=== PATIENT | female | born 1955 | race Caucasian/White ===

== ENCOUNTER → 2022-08-13 | Outpatient (CLI) | payer MEDICARE ==
[2022-08-13 11:25] VITALS: BP 147/80; PULSE 59; RESP 17; TEMP 97.8
--- NOTE | 2022-08-13 11:43 | P.GSHP ---
History of Present Illness H&P Date: 08/13/22 Chief Complaint: Invasive ductal carcinoma right breast stage IA Karla is a 67-year-old white female seen in consultation for Dr. Calles regarding a biopsy-proven right breast invasive ductal carcinoma. She underwent a bilateral screening mammogram on which revealed an abnormality in the right breast. This was followed by a right breast ultrasound which led to a biopsy performed on . The lesion was 0.4 x 0.5 cm at the 8 o'clock position right breast. Pathology revealed a grade 1 invasive ductal carcinoma ER/LA positive HER-2/carissa negative. This was a routine screening mammogram. Her last mammogram prior to this one was 2013. She did not feel any lumps, masses, or nodules in her breast. She has not had prior surgery in her breast. She has no history of any recent trauma or infection in her breast. Caffeine: 1 pot of coffee/day nicotine: none chocolate: occasional BCP: in her 20's used for 8 years Family History: maternal grandmother: colon cancer brother: lung cancer smoker Hormonal History: menarche: 14 G1A menopause: 52 hormones: none Surgical History: colonoscopy in the past Medical History: Anxiety/depression Social History: nicotine: none alcohol: beer daily to help sleep drugs: none - Constitutional Constitutional: Denies chills, Denies fever - EENT Eyes: denies blurred vision, denies pain Ears: deny: decreased hearing, tinnitus Ears, nose, mouth and throat: Denies headache, Denies sore throat - Breasts Breasts: bilateral: as per HPI - Cardiovascular Cardiovascular: Denies chest pain, Denies shortness of breath - Respiratory Respiratory: Denies cough, Denies 7 - Gastrointestinal Gastrointestinal: Denies abdominal pain, Denies diarrhea, Denies nausea, Denies vomiting - Genitourinary (Female) Genitourinary: Denies dysuria, Denies hematuria - Menstruation Menstruation: Reports postmenopausal - Musculoskeletal Musculoskeletal: Denies myalgias - Integumentary Integumentary: Denies pruritus, Denies rash - Neurological Neurological: Denies numbness, Denies weakness - Psychiatric Psychiatric: Reports anxiety, Reports depression - Endocrine Endocrine: Denies fatigue, Denies weight change - Hematologic/Lymphatic Comment: none - Allergic/Immunologic Allergic/Immunologic: Reports seasonal allergies Past Medical History Past Medical History: No Reported History History of Any Multi-Drug Resistant Organisms: None Reported Past Surgical History: No Surgical Hx Reported Past Anesthesia/Blood Transfusion Reactions: No Reported Reaction Past Psychological History: Anxiety, Depression Smoking Status: Former smoker Past Alcohol Use History: Occasional Past Drug Use History: None Reported Medications and Allergies Home Medications Medication Instructions Recorded Confirmed Type Unable To Assess [Unable to Assess] 08/13/22 08/13/22 History Allergies Allergy/AdvReac Type Severity Reaction Status Date / Time No Known Allergies Allergy Unverified 08/13/22 11:20 Surgical - Exam Vital Signs Temp Pulse Resp BP Pulse Ox 97.8 F 59 L 17 147/80 99 08/13/22 11:22 08/13/22 11:22 08/13/22 11:22 08/13/22 11:22 08/13/22 11:22 - General no distress - Eyes normal ocular movement - Neck trachea midline - Respiratory normal respiratory effort, clear to auscultation - Cardiovascular Rhythm: regular Heart Sounds: normal: S1, S2 - Abdomen Abdomen: soft - Integumentary normal turgor - Neurologic no disoriented, no combative - Musculoskeletal normal gait - Psychiatric oriented to time, oriented to person, oriented to place, speech is normal, memory intact Breast Exam: BRA: 38B inspection: bilateral grade 3 ptosis, right breast larger than left breast palpation: right breast: Multi-positional exam no dominant masses or nodules of concern Right axilla: No adenopathy of concern Left breast: Multiple positional exam no dominant masses or nodules of concern Left axilla: No adenopathy of concern Results Ultrasound results reviewed, mammogram pending pathology results reviewed Assessment and Plan Assessment: Impression: Right breast stage IA invasive ductal carcinoma Plan: Presentation of case at tumor board CC: Dr. Calles
== END ==
LOC: WWCWWP 10:31
PROVIDERS: ATTEND Surgery
DX: C50.911 Malignant neoplasm of unspecified site of right female breast (principal); F32.A Depression, unspecified; F41.9 Anxiety disorder, unspecified; Z87.891 Personal history of nicotine dependence; Z80.0 Family history of malignant neoplasm of digestive organs; Z17.0 Estrogen receptor positive status [ER+]; Z80.1 Family history of malignant neoplasm of trachea, bronchus and lung

== ENCOUNTER → 2022-09-24 | Outpatient (CLI) | payer MEDICARE ==
[2022-09-24 14:56] VITALS: BP 135/81; PULSE 68; RESP 13; TEMP 98.2
--- NOTE | 2022-09-24 15:06 | P.PN ---
Subjective Progress Note Date: 09/24/22 History of Present Illness H&P Date: 08/13/22 Chief Complaint: Invasive ductal carcinoma right breast stage IA Karla is a 67-year-old white female seen in consultation for Dr. Calles regarding a biopsy-proven right breast invasive ductal carcinoma. She underwent a bilateral screening mammogram on which revealed an abnormality in the right breast. This was followed by a right breast ultrasound which led to a biopsy performed on . The lesion was 0.4 x 0.5 cm at the 8 o'clock position right breast. Pathology revealed a grade 1 invasive ductal carcinoma ER/[place] positive HER-2/carissa negative. This was a routine screening mammogram. Her last mammogram prior to this one was 2013. She did not feel any lumps, masses, or nodules in her breast. She has not had prior surgery in her breast. She has no history of any recent trauma or infection in her breast. tumor board: 08-24-22 note radiation oncology 08-26-22 reviewed Caffeine: 1 pot of coffee/day nicotine: none chocolate: occasional BCP: in her 20's used for 8 years Family History: maternal grandmother: colon cancer brother: lung cancer smoker Hormonal History: menarche: 14 G1A menopause: 52 hormones: none Surgical History: colonoscopy in the past Medical History: Anxiety/depression Social History: nicotine: none alcohol: beer daily to help sleep drugs: none - Constitutional Constitutional: Denies chills, Denies fever - EENT Eyes: denies blurred vision, denies pain Ears: deny: decreased hearing, tinnitus Ears, nose, mouth and throat: Denies headache, Denies sore throat - Breasts Breasts: bilateral: as per HPI - Cardiovascular Cardiovascular: Denies chest pain, Denies shortness of breath - Respiratory Respiratory: Denies cough - Gastrointestinal Gastrointestinal: Denies abdominal pain, Denies diarrhea, Denies nausea, Denies vomiting - Genitourinary (Female) Genitourinary: Denies dysuria, Denies hematuria - Menstruation Menstruation: Reports postmenopausal - Musculoskeletal Musculoskeletal: Denies myalgias - Integumentary Integumentary: Denies pruritus, Denies rash - Neurological Neurological: Denies numbness, Denies weakness - Psychiatric Psychiatric: Reports anxiety, Reports depression - Endocrine Endocrine: Denies fatigue, Denies weight change - Hematologic/Lymphatic Comment: none - Allergic/Immunologic Allergic/Immunologic: Reports seasonal allergies Past Medical History Past Medical History: No Reported History History of Any Multi-Drug Resistant Organisms: None Reported Past Surgical History: No Surgical Hx Reported Past Anesthesia/Blood Transfusion Reactions: No Reported Reaction Past Psychological History: Anxiety, Depression Smoking Status: Former smoker Past Alcohol Use History: Occasional Past Drug Use History: None Reported Medications and Allergies Home Medications Medication Instructions Recorded Confirmed Type Unable To Assess [Unable to Assess] 08/13/22 08/13/22 History Allergies Allergy/AdvReac Type Severity Reaction Status Date / Time No Known Allergies Allergy Unverified 08/13/22 11:20 Objective - Vital Signs Vital signs: Vital Signs Temp 98.2 F 09/24/22 14:53 Pulse 68 09/24/22 14:53 Resp 13 09/24/22 14:53 BP 135/81 09/24/22 14:53 Pulse Ox 98 09/24/22 14:53 FiO2 Intake & Output 09/23/22 09/24/22 09/24/22 18:59 06:59 18:59 Weight 64.41 kg - Constitutional General appearance: Present: cooperative - EENT Eyes: Present: EOMI ENT: Present: hearing grossly normal - Neck Neck: Present: normal ROM - Respiratory Respiratory: bilateral: CTA - Cardiovascular Rhythm: regular Heart sounds: normal: S1, S2 - Gastrointestinal General gastrointestinal: Present: soft - Integumentary Integumentary: Present: normal turgor - Musculoskeletal Musculoskeletal: Present: gait normal - Psychiatric Psychiatric: Present: A&O x's 3, appropriate affect, intact judgment & insight - Additional findings Additional findings: Breast Exam: BRA: 38B inspection: bilateral grade 3 ptosis, right breast larger than left breast palpation: right breast: Multi-positional exam no dominant masses or nodules of concern Right axilla: No adenopathy of concern Left breast: Multiple positional exam no dominant masses or nodules of concern Left axilla: No adenopathy of concern Assessment and Plan Assessment: Impression: Right breast stage IA invasive ductal carcinoma I have seen the patient with her friend. We have discussed treatment options which include: Surgery lumpectomy plus radiation versus mastectomy Archer node biopsy/axillary node dissection Medical oncology treatments Radiation oncology The patient and her friend understand the patient would like to have a lumpectomy. Risks of surgery include but are not limited to bleeding, infection, reaction to the anesthetic. They also understand the risk of positive margin would require repeat the resection. They also understand that surgery in the axilla could result in lymphedema, decreased sensation to the inner arm, possible injury to the thoracodorsal or long thoracic nerves. They wish to proceed with surgery. Plan: Presentation of case at tumor board/ 08-24-22 Right breast needle localization lumpectomy, possible onco-plastic tissue transfer, right sentinel node injection, right sentinel node biopsy, possible right axillary node dissection Plan: Presentation of case at tumor board CC: Dr. Calles
== END ==
LOC: WWCWWP 14:44
PROVIDERS: ATTEND Surgery
DX: D05.11 Intraductal carcinoma in situ of right breast (principal); F41.9 Anxiety disorder, unspecified; F32.A Depression, unspecified; Z17.0 Estrogen receptor positive status [ER+]; Z87.891 Personal history of nicotine dependence

== ENCOUNTER 2022-10-05 10:41 | Day surgery (SDC) | payer MEDICARE ==
[~2022-10-05 10:41] MED LIST: ALPRAZolam 0.5 MG TAB PO PRN; DEXAMETHASONE SOD PHOSPHATE 4 MG/ML 1 ML VIAL IV ONE; HEPARIN SODIUM,PORCINE/PF 5,000 UNIT/0.5 ML SYRINGE SQ PRN; HYDROmorphone 0.5 MG/0.5 ML SYRINGE IVP PRN; LACTATED RINGERS 1,000 ML IV SCH; LIDOCAINE 1% (10MG/ML) FOR IV START INTRADERMA PRN; METOCLOPRAMIDE 5 MG/ML 2 ML VIAL IVP PRN; ONDANSETRON 4 MG/2 ML VIAL IVP ONE; Pre Op ABX Message 1 EACH MISC MISCELLANE ONE
[2022-10-05] MEDS ORDERED: ALPRAZolam 0.5 MG TAB PO ONE (11:30)
[2022-10-05 12:02] VITALS: TEMP 98.1
[2022-10-05] MEDS ORDERED: LIDOCAINE 1% INJ 10MG/ML (20 ML MDV) SQ ONE (12:07)
--- NOTE | 2022-10-05 12:59 | NM ---
EXAMINATION TYPE: NM sentinel node injection DATE OF EXAM: 10/05/2022 COMPARISON: NONE CLINICAL INDICATION: Female, 67 years old with history of Breast Cancer; TECHNIQUE AND FINDINGS: The procedure of sentinel lymph node injection was explained to the patient. The benefits, alternatives, and risks were discussed. An informed consent was then obtained. Overlying skin is cleaned with sterile alcohol. Following this, 518 uCi Tc99m Tilmanocept was inject ed in the upper outer aspect of the right nipple intradermally. The patient tolerated the procedure well without any immediate complication. The patient was kept in the radiology department for short stay after the procedure and then taken to surgery for surgical p rocedure what is presumed intraoperative gamma probe will be used for sentinel lymph node detection. IMPRESSION: Right breast radiotracer injection for sentinel node localization as above.
--- NOTE | 2022-10-05 13:51 | P.NAPBC ---
NAPBC Queries - NAPBC Queries Was patient's case review presented at [facility] tumor board? If no, comment.: Yes Was patient's pathology reviewed at [facility]? If no, comment.: Yes Was breast conservation surgery offered? If no, comment.: Yes Was sentinel node biopsy offered? If no, comment.: Yes Was diagnosis confirmed by percutaneous core biopsy? If no, comment.: Yes Is patient mastectomy patient?: No Was a preop referral to reconstructive surgeon offered?: No Clinical Stage: stage IA right breast invasive ductal cancer
[2022-10-05] MEDS ORDERED: PROPOFOL 10 MG/ML 20 ML VIAL IV ONE (14:30)
[2022-10-05] MEDS ORDERED: MIDAZOLAM 2 MG/2 ML VIAL ONE (14:30)
[2022-10-05] MEDS ORDERED: LIDOCAINE 2% INJ 20 MG/ML (2 ML VIAL) ONE (14:30)
[2022-10-05] MEDS ORDERED: fentaNYL (PF) 50 MCG/ML 2 ML AMP ONE (14:30)
[2022-10-05] MEDS ORDERED: LACTATED RINGERS 1,000 ML IV ONE (15:25)
--- NOTE | 2022-10-05 15:58 | P.OP ---
Date of Procedure: 10/05/22 Preoperative Diagnosis: Right breast invasive ductal carcinoma Postoperative Diagnosis: Same Procedure(s) Performed: Right breast needle localization lumpectomy, sentinel node biopsy Anesthesia: SHAWNAA Surgeon: Marizol Petersen Estimated Blood Loss (ml): 10 IV fluids (ml): 700 Pathology: other (Breast tissue) Condition: stable Disposition: same day Indications for Procedure: Biopsy-proven right breast invasive ductal carcinoma Operative Findings: Fibrofatty breast tissue Description of Procedure: The patient was initially seen by the radiology department. Localization of the tumor in the right breast was performed. Periareolar injection of radioactive material was placed in the right breast. The patient was brought to the operative suite. Following induction of anesthesia the neoprobe was used to interrogate the axilla. Increased radioactivity was identified. The right breast and axilla were then prepped and draped in a sterile fashion. Using the neoprobe for localization an incision was made in the right axilla. Dissection was performed down to the area of greatest radioactivity. This was grasped using an Allis clamp. Circumferential dissection was performed and the area was removed. The 10 second count on the lymph node was 9475. The 10 second background count was 50. No other adenopathy of concern was identified. The wound was well irrigated. The deep tissues were closed using 3-0 Vicryl suture. A 3-0 Vicryl suture was used to close subcutaneous tissue. 4-0 Monocryl was used to close the skin. The area of the breast was approached. A vertical incision was made and skin was removed anteriorly. Dissection was performed posterior circumferentially around the needle to the pectoralis muscle. Wide resection was performed. Radiograph of the specimen revealed that the area of concern had been removed. After assured that hemostasis was attained the wound was well irrigated. Surgicel in powder form was placed. Titanium clips were placed. The deep ti ssues were brought together using 3-0 Vicryl suture. The subcutaneous tissue was closed using a 3-0 Vicryl suture. The skin was closed using 4-0 Monocryl.
[2022-10-05 16:46] VITALS: RESP 17
[2022-10-05] MEDS ORDERED: HYDROcodone/APAP 5-325MG 1 EACH TAB ONE (16:50)
[2022-10-05] MEDS ORDERED: HYDROcodone/APAP 5-325MG 1 EACH TAB PO ONE (16:53)
[2022-10-05 17:07] VITALS: BP 145/88; PULSE 77
--- NOTE | 2022-10-18 12:02 | MM ---
Risk Values: Sharon 5 year model risk: 1.8%. NCI Lifetime model risk: 6.9%. Pathology Description: Approach: Lateral to Medial Needle Type: 7 cm Kopan Informed consent was obtained and all the patient's questions were answered. The clip in question was localized mammographically. The standard sterile technique was utilized, as well as appropriate local anesthesia with 1% Lidocaine and bicarbonate. Localization needle followed by placement of a guidewire was performed under mammographic guidance. Verification images demonstrate appropriate deployment of the guidewire. The patient tolerated the procedure well and left the department in stable condition. Specimen radiograph demonstrates the clip in question to reside within the specimen. IMPRESSION: Successful needle localization and open biopsy right breast with pathology results pending. Pathology Results: Result: Malignant, Invasive ductal carcinoma. A. LYMPH NODE, RIGHT SENTINEL, DISSECTION: One sentinel lymph node, negative for metastatic carcinoma. CK7 and ADRIENNE stains with appropriate controls on blocks A1 and A2 each negative for metastatic carcinoma. B. RIGHT AXILLARY TISSUE, DISSECTION: Benign fibroadipose tissue with no definitive lymphoid tissue identified. C. RIGHT BREAST, LUMPECTOMY: Invasive well differentiated ductal carcinoma, Grade 1 (see surgical pathology cancer case summary and comment). All margins negative for carcinoma. Overall Assessment: Malignant Management: Surgical Consultation of the right breast. Electronically signed and approved by: Jose Alberto Sawant M.D. Radiologis
== END 2022-10-05 17:35 | disposition home or self-care (01) ==
LOC: OR 10:41
PROVIDERS: ATTEND Surgery
DX: C50.511 Malignant neoplasm of lower-outer quadrant of right female breast (principal); Z86.010 Personal history of colon polyps; I10 Essential (primary) hypertension; E78.5 Hyperlipidemia, unspecified; Z79.899 Other long term (current) drug therapy; Z79.811 Long term (current) use of aromatase inhibitors; Z79.02 Long term (current) use of antithrombotics/antiplatelets
CPT/HCPCS: 38500; 88342; 88307; 88341; 76098; 19281; 38792; C1819; A9520; J2250; J1100; J2405; J2001 ×2; J3010; J2704; J1644

== ENCOUNTER → 2022-10-14 | Outpatient (CLI) | payer MEDICARE ==
--- NOTE | 2022-10-14 12:51 | P.PN ---
Progress Note - Text Progress Note Date: 10/14/22 Karla is a 67 year old female status post right [place] [id number]. Pathology revealed a grade 1 invasive well- differentiated ductal carcinoma all margins negative for cancer. The tumor was 7 mm in greatest dimension. She had 1 sentinel lymph node removed which was negative for cancer. She tolerated the surgery without difficulty. physical exam: lungs: clear heart: RRR Incision clean and dry axilla and breast Impression: Patient doing well postoperatively remove sutures Plan: Appointment medical oncology Radiation oncology Follow-up E4 months CC: DR. Calles
[2022-10-14 13:06] VITALS: BP 149/86; PULSE 72; RESP 17; TEMP 98.4
== END ==
LOC: WWCWWP 12:23
PROVIDERS: ATTEND Surgery
DX: Z85.3 Personal history of malignant neoplasm of breast (principal)

== ENCOUNTER → 2023-11-09 | Outpatient (CLI) | payer MEDICARE ==
[2023-11-09 13:08] VITALS: BP 192/96; PULSE 84; RESP 17; TEMP 98.4
--- NOTE | 2023-11-09 13:27 | P.PN ---
Subjective Progress Note Date: 11/09/23 Principal diagnosis: right breast invasive ductal cancer 202211-09-23 History of Present Illness Chief Complaint: Invasive ductal carcinoma right breast stage IA Karla is a 68-year-old white female seen in consultation for Dr. Calles regarding a biopsy-proven right breast invasive ductal carcinoma in 2022. She underwent a bilateral screening mammogram on which revealed an abnormality in the right breast. This was followed by a right breast ultrasound which led to a biopsy performed on . The lesion was 0.4 x 0.5 cm at the 8 o'clock position right breast. Pathology revealed a grade 1 invasive ductal carcinoma ER/[place] positive HER-2/carissa negative. This was a routine screening mammogram. Her last mammogram prior to this one was 2013. She did not feel any lumps, masses, or nodules in her breast. She had not had prior surgery in her breast. She has no history of any recent trauma or infection in her breast. She does not complain of any lumps in her breast at this time. She is not complaining of any nipple discharge or skin changes. tumor board: 08-24-22 right breast lumpectomy and SNB on 10-05-22 note radiation oncology 01-13-23 reviewed; completed treatment on 12-14-22 note medical oncology 10-31-23 reviewed; on annestrazole bilateral mammogram on 10-20-23 irregular area right breast ultrasound done probably cyst but biopsy recommended, done a [facility] She comes today for evaluation of the radiographic abnormality in the right breast. She states her phone has not been working and she has missed multiple appointments here. note Dr. Calles reviewed 10-27-23 Caffeine: 1 pot of coffee/day nicotine: none chocolate: occasional BCP: in her 20's used for 8 years Family History: maternal grandmother: colon cancer brother: lung cancer smoker Hormonal History: menarche: 14 G1A menopause: 52 hormones: none Surgical History: colonoscopy in the past Medical History: Anxiety/depression Social History: nicotine: none alcohol: beer daily to help sleep drugs: none - Constitutional Constitutional: Denies chills, Denies fever - EENT Eyes: denies blurred vision, denies pain Ears: deny: decreased hearing, tinnitus Ears, nose, mouth and throat: Denies headache, Denies sore throat - Breasts Breasts: bilateral: as per HPI - Cardiovascular Cardiovascular: Denies chest pain, Denies shortness of breath - Respiratory Respiratory: Denies cough - Gastrointestinal Gastrointestinal: Denies abdominal pain, Denies diarrhea, Denies nausea, Denies vomiting - Genitourinary (Female) Genitourinary: Denies dysuria, Denies hematuria - Menstruation Menstruation: Reports postmenopausal - Musculoskeletal Musculoskeletal: Denies myalgias - Integumentary Integumentary: Denies pruritus, Denies rash - Neurological Neurological: Denies numbness, Denies weakness - Psychiatric Psychiatric: Reports anxiety, Reports depression - Endocrine Endocrine: Denies fatigue, Denies weight change - Hematologic/Lymphatic Comment: none - Allergic/Immunologic Allergic/Immunologic: Reports seasonal allergies Past Medical History Past Medical History: No Reported History History of Any Multi-Drug Resistant Organisms: None Reported Past Surgical History: No Surgical Hx Reported Past Anesthesia/Blood Transfusion Reactions: No Reported Reaction Past Psychological History: Anxiety, Depression Smoking Status: Former smoker Past Alcohol Use History: Occasional Past Drug Use History: None Reported Medications and Allergies Home Medications Medication Instructions Recorded Confirmed Type Unable To Assess [Unable to Assess] 08/13/22 08/13/22 History Allergies Allergy/AdvReac Type Severity Reaction Status Date / Time No Known Allergies Allergy Unverified 08/13/22 11:20 Objective - Vital Signs Vital signs: Vital Signs Temp 98.4 F 11/09/23 13:04 Pulse 84 11/09/23 13:04 Resp 17 11/09/23 13:04 BP 192/96 11/09/23 13:04 Pulse Ox 96 11/09/23 13:04 FiO2 Intake & Output 11/08/23 11/09/23 11/09/23 18:59 06:59 18:59 Weight 70.307 kg - Constitutional General appearance: Present: cooperative - EENT Eyes: Present: EOMI ENT: Present: hearing grossly normal - Neck Neck: Present: normal ROM - Respiratory Respiratory: bilateral: CTA - Cardiovascular Rhythm: regular Heart sounds: normal: S1, S2 - Gastrointestinal General gastrointestinal: Present: soft - Integumentary Integumentary: Present: normal turgor - Musculoskeletal Musculoskeletal: Present: gait normal - Psychiatric Psychiatric: Present: A&O x's 3, appropriate affect, intact judgment & insight - Additional findings Additional findings: Breast Exam: BRA: 38B inspection: bilateral grade 3 ptosis, right breast larger than left breast palpation: right breast: Multi-positional exam no dominant masses or nodules of concern; fullness in the lower lateral breast, scar lower lateral right breast Right axilla: No adenopathy of concern Left breast: Multiple positional exam no dominant masses or nodules of concern Left axilla: No adenopathy of concern Assessment and Plan Assessment: Impression: Recent bilateral mammogram revealing an area of concern in the right breast Patient's status post right breast lumpectomy and sentinel node biopsy for invasive ductal carcinoma in 2022 Plan: Right breast ultrasound-guided aspiration/biopsy Follow-up after aspiration/biopsy right breast CC: Dr. Calles
== END ==
LOC: WWCWWP 11:27
PROVIDERS: ATTEND Surgery
DX: Z12.31 Encounter for screening mammogram for malignant neoplasm of breast (principal); R92.8 Other abnormal and inconclusive findings on diagnostic imaging of breast; C50.911 Malignant neoplasm of unspecified site of right female breast; Z48.817 Encounter for surgical aftercare following surgery on the skin and subcutaneous tissue; Z17.0 Estrogen receptor positive status [ER+]; Z98.890 Other specified postprocedural states; Z87.891 Personal history of nicotine dependence

== ENCOUNTER → 2023-11-10 | Day surgery (SDC) | payer MEDICARE ==
--- NOTE | 2023-12-02 08:58 | MM ---
Reason for Exam: Post Procedure Mammogram. Last mammogram was performed 10 year(s) and 6 month(s) ago. Patient History: Menarche at age 14. First Full-Term at age 29. Postmenopausal. Breast cancer, right, age 67. Hormonal Contraceptives for 15 years from age 24 until age 37. 10/05/2022, Lumpectomy on the Right side. 10/05/2022, Malignant MG pre op needle loc RT on the right side. Maternal cousin had breast cancer, age 30. Prior Study Comparison: 06/21/2003 Screening Mammogram, [place]. 02/16/2006 Bilateral Screening Mammogram, [facility]. 05/09/2013 Bilateral Screening Mammogram, [facility]. Tissue Density: Right: The breasts are heterogeneously dense, which may obscure small masses. Pathology Description: Location: 7 o'clock. The 2.7 cm cystic area in the right breast, 7:00 position underlying the patient's scar is identified and targeted for aspiration. Postsurgical seroma is suggested. No significant internal complexity is seen. The ultrasound guided cyst aspiration procedure was explained to the patient. The risks, benefits, alternatives were discussed. An informed consent was then obtained. A time out was performed. The patient was placed in supine positioning for imaging and for the procedure. The overlying skin was prepped with ChloraPrep and sterilely draped in usual sterile fashion. 5 ml 1% lidocaine was used as anesthetic into the skin and deeper breast tissue up to area of concern in the right 7 o'clock breast, 7 cm from nipple. Under ultrasound guidance, 18-gauge spinal needle was advanced into the fluid collection and aspiration yielded 5 mL of clear jett seroma fluid. The fluid was labeled and sent for laboratory analysis. No clip was deposited. Good hemostasis was obtained with direct pressure. Postprocedure mammogram: The patient was transferred to mammography for physician ordered post procedure mammogram for clip placement verification. The clip is in the expected region of the surgical site. The patient tolerated the procedure well without any immediate complication. The patient was discharged to home in stable condition. IMPRESSION: Successful ultrasound guided right breast seroma aspiration. Cytology pending. Recommend 6 month follow-up diagnostic mammogram as continued surveillance following recent treatment for breast cancer. Pathology Results: Result: Benign. Pathology and radiology were reviewed. Findings are concordant. RIGHT BREAST, ASPIRATION: Hypocellular specimen with mostly peripheral blood, non-diagnostic for neoplasm. Foamy macrophages on Crawley stained cytospin slide, possibly representing fat necrosis. Overall Assessment: Benign Assessment: MG diagnostic mammo RT wo CAD - Right: Probably benign, BI-RAD 3. Management: Diagnostic Mammogram of the right breast in 3 months. Diagnostic Breast Ultrasound of the right breast in 3 months. Electronically signed and approved by: Sarahy Huitron M.D. Radiologist
== END ==
LOC: RADUSWWP 12:33
PROVIDERS: ATTEND Surgery
DX: C50.911 Malignant neoplasm of unspecified site of right female breast (principal); N63.0 Unspecified lump in unspecified breast; Z78.0 Asymptomatic menopausal state; Z80.3 Family history of malignant neoplasm of breast
CPT/HCPCS: 76942; 77065; 88173; 88305

== ENCOUNTER → 2023-12-01 | Outpatient (CLI) | payer MEDICARE ==
[2023-12-01 09:29] VITALS: BP 146/84; PULSE 79; RESP 16; TEMP 98.1
--- NOTE | 2023-12-01 09:54 | P.PN ---
Subjective Progress Note Date: 12/01/23 right breast invasive ductal cancer 202212-01-23 History of Present Illness Chief Complaint: Invasive ductal carcinoma right breast stage IA Karla is a 68-year-old white female seen in consultation for Dr. Calles regarding a biopsy-proven right breast invasive ductal carcinoma in 2022. She underwent a bilateral screening mammogram on which revealed an abnormality in the right breast. This was followed by a right breast ultrasound which led to a biopsy performed on . The lesion was 0.4 x 0.5 cm at the 8 o'clock position right breast. Pathology revealed a grade 1 invasive ductal carcinoma ER/NV positive HER-2/carissa negative. This was a routine screening mammogram. Her last mammogram prior to this one was 2013. She did not feel any lumps, masses, or nodules in her breast. She had not had prior surgery in her breast. She has no history of any recent trauma or infection in her breast. She does not complain of any lumps in her breast at this time. She is not complaining of any nipple discharge or skin changes. tumor board: 08-24-22 right breast lumpectomy and SNB on 10-05-22 note radiation oncology 01-13-23 reviewed; completed treatment on 12-14-22 note medical oncology 10-31-23 reviewed; on annestrazole bilateral mammogram on 10-20-23 irregular area right breast ultrasound done probably cyst but biopsy recommended, done a [facility] She comes today for evaluation of the radiographic abnormality in the right breast. She states her phone has not been working and she has missed multiple appointments here. The patient had a Biopsy of the right breast done on 11-10-23 hypocellular specimen probable fat necrosis Caffeine: 1 pot of coffee/day nicotine: none chocolate: occasional BCP: in her 20's used for 8 years Family History: maternal grandmother: colon cancer brother: lung cancer smoker Hormonal History: menarche: 14 G1A menopause: 52 hormones: none Surgical History: colonoscopy in the past Medical History: Anxiety/depression Social History: nicotine: none alcohol: beer daily to help sleep drugs: none - Constitutional Constitutional: Denies chills, Denies fever - EENT Eyes: denies blurred vision, denies pain Ears: deny: decreased hearing, tinnitus Ears, nose, mouth and throat: Denies headache, Denies sore throat - Breasts Breasts: bilateral: as per HPI - Cardiovascular Cardiovascular: Denies chest pain, Denies shortness of breath - Respiratory Respiratory: Denies cough - Gastrointestinal Gastrointestinal: Denies abdominal pain, Denies diarrhea, Denies nausea, Denies vomiting - Genitourinary (Female) Genitourinary: Denies dysuria, Denies hematuria - Menstruation Menstruation: Reports postmenopausal - Musculoskeletal Musculoskeletal: Denies myalgias - Integumentary Integumentary: Denies pruritus, Denies rash - Neurological Neurological: Denies numbness, Denies weakness - Psychiatric Psychiatric: Reports anxiety, Reports depression - Endocrine Endocrine: Denies fatigue, Denies weight change - Hematologic/Lymphatic Comment: none - Allergic/Immunologic Allergic/Immunologic: Reports seasonal allergies Past Medical History Past Medical History: No Reported History History of Any Multi-Drug Resistant Organisms: None Reported Past Surgical History: No Surgical Hx Reported Past Anesthesia/Blood Transfusion Reactions: No Reported Reaction Past Psychological History: Anxiety, Depression Smoking Status: Former smoker Past Alcohol Use History: Occasional Past Drug Use History: None Reported Medications and Allergies Home Medications Medication Instructions Recorded Confirmed Type Unable To Assess [Unable to Assess] 08/13/22 08/13/22 History Allergies Allergy/AdvReac Type Severity Reaction Status Date / Time No Known Allergies Allergy Unverified 08/13/22 11:20 Objective - Vital Signs Vital signs: Vital Signs Temp 98.1 F 12/01/23 09:24 Pulse 79 12/01/23 09:24 Resp 16 12/01/23 09:24 BP 146/84 12/01/23 09:24 Pulse Ox 98 12/01/23 09:24 FiO2 Intake & Output 11/30/23 12/01/23 12/01/23 18:59 06:59 18:59 Weight 70.307 kg - Constitutional General appearance: Present: cooperative - EENT Eyes: Present: EOMI ENT: Present: hearing grossly normal - Neck Neck: Present: normal ROM - Respiratory Respiratory: bilateral: CTA - Cardiovascular Rhythm: regular Heart sounds: normal: S1, S2 - Integumentary Integumentary Comment(s): Right breast no evidence of infection or hematoma at biopsy site Assessment and Plan Assessment: Impression: Patient's status post right breast lumpectomy 10-05-22 this was a grade 1 ER positive NV positive HER2 negative lesion less than 1 cm, node (-) 1 therapy She completed a course of radiation therapy Recent biopsy right breast negative Plan: Patient doing well at this time no evidence of recurrent cancer Repeat right breast mammogram and ultrasound in 6 months Follow-up here at that time Follow-up medical oncology Follow-up radiation oncology Continue hormone therapy CC: Dr. Calles
== END ==
LOC: WWCWWP 08:38
PROVIDERS: ATTEND Surgery
DX: Z48.817 Encounter for surgical aftercare following surgery on the skin and subcutaneous tissue (principal); C50.911 Malignant neoplasm of unspecified site of right female breast; Z17.0 Estrogen receptor positive status [ER+]; Z92.3 Personal history of irradiation; Z87.891 Personal history of nicotine dependence

== ENCOUNTER → 2024-02-13 | Outpatient (CLI) | payer MEDICARE ==
--- NOTE | 2024-02-13 13:15 | MM ---
Reason for Exam: Follow-up at short interval from prior study. Last mammogram was performed 10 year(s) and 10 month(s) ago. Patient History: Menarche at age 14. First Full-Term at age 29. Postmenopausal. Breast cancer, right, age 67. Hormonal Contraceptives for 15 years from age 24 until age 37. 11/10/2023, Benign US breast aspiration single RT on the right side. 10/05/2022, Lumpectomy on the Right side. 10/05/2022, Malignant MG pre op needle loc RT on the right side. Maternal cousin had breast cancer, age 30. Prior Study Comparison: 02/16/2006 Bilateral Screening Mammogram, [facility]. 05/09/2013 Bilateral Screening Mammogram, [facility]. 11/10/2023 Right MG diagnostic mammo RT wo CAD, [facility]. Tissue Density: Right: The breasts are heterogeneously dense, which may obscure small masses. Findings: Analyzed By CAD. Postsurgical and posttreatment changes right breast. Lateral subareolar asymmetric density on the CC view disperses on additional rolled views compatible with superimposition shadow. A subareolar asymmetric density just medially remains unchanged for 6 months. Postsurgical and posttreatment change redemonstrated. Overall Assessment: Incomplete: need additional imaging evaluation, BI-RAD 0 Management: Diagnostic Breast Ultrasound of the right breast. As ordered [facility], , 02/13/2024 1:12 PM. Electronically signed and approved by: Sarahy Huitron M.D. Radiologist
--- NOTE | 2024-02-13 14:11 | USB ---
Reason for Exam: Hx of breast cancer, conservation therapy. Patient History: Menarche at age 14. Patient has no children. Postmenopausal. Breast cancer, right, age 67. Previous chest radiation therapy at age 67. Hormonal Contraceptives, from age 24 until age 37. 11/10/2023, Benign US breast aspiration single RT on the right side. 10/05/2022, Lumpectomy on the Right side. 10/05/2022, Malignant MG pre op needle loc RT on the right side. Maternal cousin had breast cancer, age 30. Technique: Method: Whole Breast Handheld. Prior Study Comparison: 02/16/2006 Bilateral Screening Mammogram, [facility]. 05/09/2013 Bilateral Screening Mammogram, [facility]. 11/10/2023 Right MG diagnostic mammo RT wo CAD, [facility]. Findings: The whole breast of the right breast, the axilla of the right breast and the retroareolar of the right breast were scanned. A complete US of all four quadrants of the breast, axilla, and retro-areolar region were reviewed. There is redemonstrated cystic area at the 7:00 position, 5 cm from the nipple, slightly smaller now measuring 2.3 x 1.8 cm versus 2.7 x 2.1 cm, previously. Echogenic focus within may represent a surgical clip. A hypoechoic area along the anterior aspect of the lesion extends to the skin surface suggesting scar. Findings suggest a small postoperative seroma. No other solid or cystic lesion or axillary lymphadenopathy. Overall Assessment: Probably benign, BI-RAD 3 Management: Screening Mammogram of the left breast. Diagnostic Mammogram of the right breast in 6 months. Patient is overdue for her left breast mammogram. Patient declined to have it performed at this visit. A clinical breast exam by your physician is recommended on an annual basis and results should be correlated with mammographic findings. This exam should not preclude additional follow-up of suspicious palpable abnormalities. Results were given to the patient verbally at the time of exam. [facility], , 02/13/2024 2:08 PM. Electronically signed and approved by: Sarahy Huitron M.D. Radiologist
== END | disposition home or self-care (01) ==
LOC: RADMAMWWP 12:39
PROVIDERS: ATTEND Surgery
DX: Z85.3 Personal history of malignant neoplasm of breast (principal); Z78.0 Asymptomatic menopausal state; R92.331 Mammographic heterogeneous density, right breast
CPT/HCPCS: 77065; 76641; G0279; 77061